=== PATIENT | female | born 1965 ===

== ENCOUNTER 2020-10-14 12:45 | Outpatient (REF) | payer OTHER, SELFPAY | END 2020-10-14 12:46 | disposition home or self-care (01) | LOC: HO.LAB 12:45 | PROVIDERS: Visit Provider Internal Medicine | DX: Z20.822 Contact with and (suspected) exposure to COVID-19 (principal) | CPT/HCPCS: 36415; C9803; U0003 ==

== ENCOUNTER → 2020-11-06 09:46 | Outpatient (BNVA) | payer OTHER, SELFPAY | PROVIDERS: PCP Internal Medicine; Visit Provider Internal Medicine Endocrinology, Diabetes & Metabolism | DX: E11.29 Type 2 diabetes mellitus with other diabetic kidney complication (principal); E11.21 Type 2 diabetes mellitus with diabetic nephropathy; E11.3293 Type 2 diabetes mellitus with mild nonproliferative diabetic retinopathy without macular edema, bilateral; E11.42 Type 2 diabetes mellitus with diabetic polyneuropathy; R80.9 Proteinuria, unspecified; I10 Essential (primary) hypertension; E78.5 Hyperlipidemia, unspecified; E66.9 Obesity, unspecified; E55.9 Vitamin D deficiency, unspecified | CPT/HCPCS: 82947; 99212 ==

== ENCOUNTER 2021-06-30 11:15 | Outpatient (REF) | payer OTHER, SELFPAY ==
[2021-06-30 12:17] LABS: Alanine Aminotransferase 17 U/L (0-31); Albumin Level 3.9 g/dL (3.5-5.0); Alkaline Phosphatase 78 U/L (39-117); Anion Gap 11 (12-20); Aspartate Amino Transferase 18 U/L (5-31); Bilirubin Total 0.3 mg/dL (0.0-1.0); Blood Urea Nitrogen 18 mg/dL (9-16); Calcium 9.6 mg/dL (8.4-10.2); Carbon Dioxide 28 mmol/L (22-29); Chloride 105 mmol/L (96-108); Cholesterol 107 mg/dL; Estimated Glomerular Filt Rate > 60; Glucose Fasting 111 mg/dL (60-99); HDL Cholesterol 47 mg/dL; LDL Cholesterol Calculated 49 mg/dl; Potassium 4.3 mmol/L (3.3-5.1); Sodium 140 mmol/L (135-145); Triglycerides 57 mg/dL
[2021-06-30 12:40] LABS: Vitamin D 25-OH Total 43.8 ng/mL (>30)
[2021-06-30 12:47] LABS: Vitamin B12 641 pg/mL (200-900)
[2021-06-30 15:00] LABS: Creatinine Urine 68.92 mg/dL; Microalbum/Creatinine Ratio Ur 81.2 ug/mg cr
== END 2021-06-30 11:16 | disposition home or self-care (01) ==
LOC: HO.LAB 11:15
PROVIDERS: PCP Internal Medicine; Visit Provider Nurse Practitioner Gerontology
DX: R80.9 Proteinuria, unspecified (principal); E11.29 Type 2 diabetes mellitus with other diabetic kidney complication; E55.9 Vitamin D deficiency, unspecified
CPT/HCPCS: 36415; 80053; 80061; 82043; 82306; 82607

== ENCOUNTER 2021-09-16 09:51 | Outpatient (REF) | payer OTHER, SELFPAY ==
[2021-09-16 10:59] LABS: Alanine Aminotransferase 17 U/L (0-31); Alkaline Phosphatase 65 U/L (39-117); Anion Gap 10 (12-20); Aspartate Amino Transferase 15 U/L (5-31); Bilirubin Total 0.7 mg/dL (0.0-1.0); Blood Urea Nitrogen 17 mg/dL (9-16); Carbon Dioxide 30 mmol/L (22-29); Chloride 105 mmol/L (96-108); Cholesterol 93 mg/dL; Estimated Glomerular Filt Rate > 60; Glucose Fasting 106 mg/dL (60-99); HDL Cholesterol 41 mg/dL; LDL Cholesterol Calculated 41 mg/dl; Potassium 4.2 mmol/L (3.3-5.1); Sodium 141 mmol/L (135-145); Total Protein 7.1 g/dL (6.5-8.0); Triglycerides 56 mg/dL
[2021-09-16 11:22] LABS: Free T4 (Free Thyroxine) 1.08 ng/dL (0.71-1.85); Thyroid Stimulating Hormone 1.14 uIU/mL (0.32-4.0); Vitamin B12 805 pg/mL (200-900)
[2021-09-16 12:17] LABS: Creatinine Urine 166.26 mg/dL; Microalbum/Creatinine Ratio Ur 64.9 ug/mg cr
== END 2021-09-16 09:52 | disposition home or self-care (01) ==
LOC: HO.LAB 09:51
PROVIDERS: Internal Medicine Endocrinology, Diabetes & Metabolism; PCP Internal Medicine; Visit Provider Nurse Practitioner Gerontology
DX: E11.29 Type 2 diabetes mellitus with other diabetic kidney complication (principal); R80.9 Proteinuria, unspecified
CPT/HCPCS: 36415; 80053; 80061; 82043; 82607; 84439; 84443

== ENCOUNTER → 2021-09-25 08:19 | Outpatient (BNVA) | payer OTHER, SELFPAY | PROVIDERS: PCP Internal Medicine; Visit Provider Nurse Practitioner Gerontology ==

== ENCOUNTER → 2022-03-19 08:48 | Outpatient (BNVA) | payer OTHER, SELFPAY | PROVIDERS: PCP Internal Medicine; Visit Provider Nurse Practitioner Gerontology | DX: E11.21 Type 2 diabetes mellitus with diabetic nephropathy (principal); E11.3293 Type 2 diabetes mellitus with mild nonproliferative diabetic retinopathy without macular edema, bilateral; I10 Essential (primary) hypertension; E78.5 Hyperlipidemia, unspecified; E66.9 Obesity, unspecified; Z68.31 Body mass index [BMI] 31.0-31.9, adult; E55.9 Vitamin D deficiency, unspecified; Z79.84 Long term (current) use of oral hypoglycemic drugs; Z79.899 Other long term (current) drug therapy | CPT/HCPCS: 82947; 83036; 99212 ==

== ENCOUNTER → 2023-03-16 10:49 | Outpatient (BNVA) | payer OTHER, SELFPAY | PROVIDERS: PCP Internal Medicine; Visit Provider Internal Medicine Rheumatology | DX: M79.7 Fibromyalgia (principal) | CPT/HCPCS: 99212 ==

== ENCOUNTER 2024-09-29 10:35 | Outpatient (AMB) | payer OTHER, SELFPAY ==
[2024-09-29 10:42] VITALS: BP 124/74; PULSE 80; O2SAT 100; BMI 32.3
--- NOTE | 2024-09-29 10:42 | A.OFFVIS_ITS ---
Vital Signs 09/29/24 10:42 Height 5 ft 5 in Weight 194 lb BMI 32.3 BP 124/74 Blood Pressure Location Lt brachial Position Sitting Pulse 80 Pulse Source Pulse Oximeter Pulse Oximetry (%) 100 Oxygen Delivery Method Room Air Intake Visit Reasons: FM Intake Note: Patient presents today for follow up on fibromyalgia. on 03/16/23, she saw Dr. Javier. Computer Patternmaker Required: Yes Computer Patternmaker Name: Michael [id number] Allergies latex Adverse Reaction (Unknown, Verified 09/29/24 10:47) Unknown HPI Comments Details: Patient is a 59-year-old female with hyperlipidemia, diabetes complicated by polyneuropathy and hypertension who presents today for follow up of fibromyalgia Interval History: Patient last seen 03/16/[address] Rick Javier. At that time patient continues to complain of widespread pains involving neck, shoulders, forearms, lower back, hips, and knees. At that time she was getting occasional steroid injections from Orthopedics. There was no evidence of inflammatory arthritis and her pain and tender points were consistent with fibromyalgia as well as likely some degenerative arthritis of the lumbar spine. She was continued with gabapentin and sent back to her PCP Today patient again reports widespread pain Most significant in her back, wrists and shoulders Takes gabapentin with some help Rheumatologic History: Fibromyalgia without any evidence of inflammatory arthritis Current Rheumatology Medication(s): Gabapentin 600 mg b.i.d. [facility] Medical History (Updated 09/29/24 @ 11:21 by Trupti Lopez MD) Carpal tunnel syndrome, right Diabetic polyneuropathy associated with type 2 diabetes mellitus Vitamin D deficiency Obesity (BMI 30-39.9) Dyslipidemia Hypertension Non-proliferative diabetic retinopathy, mild, both eyes Diabetic nephropathy associated with type 2 diabetes mellitus Diabetes type 2, controlled Surgical History H/O breast biopsy Hx of tonsillectomy Family History (Updated 03/16/23 @ 11:05 by MICHEAL Acuna) Mother Heart disease Hypertension Father No problems noted. Other Family history of arthritis Family history of diabetes mellitus Social History (Updated 03/16/23 @ 11:00 by MICHEAL Acuna) Household Members: Spouse Alcohol intake: never Patient Tobacco Use Status: Never used Tobacco Review of Systems Const Details: Review of Systems Constitutional: Denies fever, chills, weight loss ENT: Denies vision changes, eye pain or eye redness, dental caries, dry mouth GI: Denies nausea, vomiting, diarrhea, abdominal pain, change in BM Pulm: Denies SOB, NIXON, hemoptysis, wheezing Cards: Denies chest pain, palpitations Skin: Denies Raynaud's, rash, nail changes, photosensitivity, KNITTING 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 Well appearing and in no apparent painful distress HEENT Conjunctiva and sclera clear. ?Pupils equal round and reactive to light. ?No lymphadenopathy. ? CHEST/RESPIRATORY SYSTEM Normal respiratory effort and able to speak in complete sentences. ?Clear to auscultation bilaterally. ?No crackles, rales, rhonchi, wheezes heard. CARDIAC SYSTEM Regular rate and rhythm. ?S1 and S2 heard no murmurs. 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 No deformities noted. ?No synovitis noted to the MCPs, PIPs or DIPs. ?No tenderness to palpation of these joints. Wrists: ?Full range of motion at the wrists without pain. ?No tenderness to palpation or synovitis noted to the wrists. Elbows: Full range of motion without pain. No tenderness, weakness, swelling, increased warmth or erythema. Shoulders: Full range of motion with some pain. No tenderness, weakness, swelli ng, increased warmth or erythema. Hip bursa: Tenderness to palpation, bilaterally Knees: ?Full range of motion. ?No tenderness, swelling, increased warmth or erythema.?Bilat crepitations noted Tender points:?Tenderness to palpation of the bilateral trapezius, supraspinatus, greater trochanters, anterior costochondral junctions, bilateral gluteal areas, bilateral suboccipital muscle insertions SKIN Skin intact without rashes. Results Reviewed Results Reviewed: No recent labs or imaging to review Assessment & Plan Assessment & Plan (1) Fibromyalgia: Code(s): M79.7 - Fibromyalgia Category: Medical Plan: #Fibromyalgia Continues to have widespread pain. Discussed with patient that fibromyalgia is an incurable disease Patient has only tried gabapentin in the past we will try cyclobenzaprine (Flexeril) to see if this helps with her muscle spasms Also told her that she would need to exercise in the morning when she wakes up and in the evening just before she goes to bed to help reduce the muscle tension Plan - Continue gabapentin 600 mg b.i.d. (refilled) - Start cyclobenzaprine 5 mg at night - Stretches on you tube shown to patient and patient to do this in the morning and in the evening - RTC 4 months to eval effectiveness of flexeril (2) Carpal tunnel syndrome, right: Code(s): G56.01 - Carpal tunnel syndrome, right upper limb Category: Medical Plan: #Carpal Tunnel on the Right Patient with carpal tunnel affecting the right wrist and hand. Prescribed splint In the future if no improvement can do steroid injections Plan I spent 30 minutes reviewing the record and labs, seeing the patient, discussing the treatment plan and documenting in the medical record ? Medications: New [carpal tunnel brace] As directed 1 ea 0RF G56.01 - Carpal tunnel syndrome, right upper limb, M79.7 - Fibromyalgia cyclobenzaprine 5 mg PO BEDTIME 90 tabs 1RF G56.01 - Carpal tunnel syndrome, right upper limb, M79.7 - Fibromyalgia [carpal tunnel brace] As directed 1 ea 0RF G56.01 - Carpal tunnel syndrome, right upper limb, M79.7 - Fibromyalgia Changed From gabapentin 600 mg PO BID E11.42 - Type 2 diabetes mellitus with diabetic polyneuropathy, M79.7 - Fibromyalgia To gabapentin 600 mg PO BID 90 days 180 tabs 1RF E11.42 - Type 2 diabetes mellitus with diabetic polyneuropathy, M79.7 - Fibromyalgia Coding Level of Care Code Est Pt Level 4 (14848) Diagnoses Fibromyalgia M79.7 Carpal tunnel syndrome, right G56.01
== END 2024-09-29 11:31 | disposition home or self-care (01) ==
PROVIDERS: PCP Internal Medicine; Visit Provider Student in an Organized Health Care Education/Training Program
DX: M79.7 Fibromyalgia (principal); G56.01 Carpal tunnel syndrome, right upper limb
CPT/HCPCS: 99214

== ENCOUNTER → 2024-09-29 10:35 | Outpatient (BNVA) | payer OTHER, SELFPAY | PROVIDERS: PCP Internal Medicine; Visit Provider Student in an Organized Health Care Education/Training Program | DX: M79.7 Fibromyalgia (principal); G56.01 Carpal tunnel syndrome, right upper limb | CPT/HCPCS: 99212 ==

== ENCOUNTER 2025-02-21 09:48 | Outpatient (AMB) | payer OTHER, SELFPAY ==
--- NOTE | 2025-02-21 09:52 | A.OFFVIS_ITS ---
Vital Signs 02/21/25 09:56 Height 5 ft 5 in Weight 195 lb 8.8 oz BMI 32.5 BP 120/72 Blood Pressure Location Lt brachial Position Sitting Pulse 82 Pulse Source Pulse Oximeter Pulse Oximetry (%) 97 Oxygen Delivery Method Room Air Intake Visit Reasons: FM Intake Note: Patient presents for FM follow up. Sausage Machine Operator Required: Yes Sausage Machine Operator Language: Braid Pattern Setter Services: Sausage Machine Operator Present Sausage Machine Operator Name: Norma [id number] Information Interpreted: non-clinical & clinical Allergies latex Adverse Reaction (Unknown, Verified 02/21/25 09:55) Unknown Medication List - Last Reconciled 02/21/25 by Trupti Lopez MD albuterol sulfate 90 mcg/actuation 1 puff inhalation Q6H PRN aspirin 1 tab PO ONCE atorvastatin 10 mg PO DAILY blood sugar diagnostic (FreeStyle Lite Strips) As directed to test blood glucose twice per day. blood sugar diagnostic (FreeStyle Precision Tristan Strips) 3 x/day [carpal tunnel brace As directed] cholecalciferol (vitamin D3) 50 mcg PO DAILY 90 days cyclobenzaprine 5 mg PO BEDTIME dulaglutide 1.5 mg (0.5 mL) subcut QWEEK 84 days flash glucose sensor (FreeStyle Jason 14 Day Sensor kit) every 14 days gabapentin 600 mg PO BID 90 days lisinopril 40 mg PO DAILY meclizine 12.500f25 mg PO TID PRN metformin ER 1,000 mg (2 x 500 mg) PO BID omeprazole 20 mg PO DAILY HPI Comments Details: Patient is a 59-year-old female with hyperlipidemia, diabetes complicated by polyneuropathy and hypertension who presents today for follow up of fibromyalgia Interval History: Patient last seen 09/29/2024. That time she was following up for her fibromyalgia as well as carpal tunnel syndrome. Flexeril 5 mg was added to her regimen of gabapentin 600 mg twice a day and she was recommended bilateral wrist splints for her carpal tunnel syndrome. Today patient reports improvement upon the Flexeril as well as improvement with using wrist splints Walks for exercise Does note some pain in her foot after walking for a prolonged period of time Rheumatologic History: Fibromyalgia without any evidence of inflammatory arthritis Current Rheumatology Medication(s): Gabapentin 600 mg b.i.d. Cyclobenzaprine 5mg at night [facility] Medical History (Updated 09/29/24 @ 11:21 by Trupti Lopez MD) Carpal tunnel syndrome, right Diabetic polyneuropathy associated with type 2 diabetes mellitus Vitamin D deficiency Obesity (BMI 30-39.9) Dyslipidemia Hypertension Non-proliferative diabetic retinopathy, mild, both eyes Diabetic nephropathy associated with type 2 diabetes mellitus Diabetes type 2, controlled Surgical History Hx of tonsillectomy H/O breast biopsy Family History Mother Heart disease Hypertension Father No problems noted. 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 Well appearing and in no apparent painful distress HEENT Conjunctiva and sclera clear. ?Pupils equal round and reactive to light. ?No lymphadenopathy. ? CHEST/RESPIRATORY SYSTEM Normal respiratory effort and able to speak in complete sentences. ?Clear to auscultation bilaterally. ?No crackles, rales, rhonchi, wheezes heard. CARDIAC SYSTEM Regular rate and rhythm. ?S1 and S2 heard no murmurs. 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 No deformities noted. ?No synovitis noted to the MCPs, PIPs or DIPs. ?No tenderness to palpation of these joints. Wrists: ?Full range of motion at the wrists without pain. ?No tenderness to palpation or synovitis noted to the wrists. Elbows: Full range of motion without pain. No tenderness, weakness, swelling, increased warmth or erythema. Shoulders: Full range of motion with some pain. No tenderness, weakness, swelling, increased warmth or erythema. Hip bursa: Tenderness to palpation, bilaterally Knees: ?Full range of motion. ?No tenderness, swelling, increased warmth or erythema.?Bilat crepitations noted Tender points:?Tenderness to palpation of the bilateral trapezius, supraspinatus, greater trochanters, anterior costochondral junctions, bilateral gluteal areas, bilateral suboccipital muscle insertions SKIN Skin intact without rashes. Results Reviewed Results Reviewed: No recent labs or imaging to review Assessment & Plan Assessment & Plan (1) Fibromyalgia: Code(s): M79.7 - Fibromyalgia Category: Medical Plan: #Fibromyalgia Patient is a 59 year old female with fibromyalgia. Notes improvement on the cyclobenzaprine. Continue gabapentin and flexeril Again encouraged stretching Plan - Continue gabapentin 600 mg b.i.d. - Cyclobenzaprine 5 mg at night - RTC 1 year (2) Carpal tunnel syndrome, right: Code(s): G56.01 - Carpal tunnel syndrome, right upper limb Category: Medical Plan: #Carpal Tunnel on the Right Patient with carpal tunnel affecting the right wrist and hand. Splinting is effective, patient to continue Plan I spent 20 minutes reviewing the record and labs, seeing the patient, discussing the treatment plan and documenting in the medical record ? Coding Level of Care Code Est Pt Level 3 (65481) Diagnoses Fibromyalgia M79.7 Carpal tunnel syndrome, right G56.01
[2025-02-21 09:56] VITALS: BP 120/72; PULSE 82; O2SAT 97; BMI 32.5
--- OUTSIDE RECORDS SUMMARY | 2025-02-21 10:33 | XMS_ITS | Clinical Summary ---
Author Organization [facility] [address] [place] [address] [place] [phone] Phone Care Team Providers Care Employee Welfare Manager Name Role Phone Russ Guerrero MD Primary Care Provider [phone] Allergies Active Allergy Reactions Criticality Noted Date Comments Adhesive Tape-Silicones 11/28/2024 burning Medications cholecalciferol (VITAMIN D-3) 50 mcg (2,000 unit) capsule Take 1 Capsule by mouth daily. 3 Active blood-glucose meter (BLOOD GLUCOSE MONITORING MISC) 1 Device by Does not apply route daily. 3 Active flash glucose sensor (FREESTYLE CELESTINE 2 SENSOR MISC) 1 Device by Does not apply route every 14 days. 3 Active FREESTYLE LANCETS MISC Test fasting blood sugar 2 times daily 4 Active blood sugar diagnostic (FreeStyle Lite Strips) test strip Test fasting blood sugar 2 times daily 4 Active diclofenac (VOLTAREN) 1 % topical gel Apply 4 g topically 4 times daily. 4 Active gabapentin (NEURONTIN) 600 mg tablet Take 1 Tablet by mouth 2 times daily. 4 Active meclizine (ANTIVERT) 25 mg tablet Take 1 Tablet by mouth 3 times daily as needed for Other. 4 Active PARoxetine (PAXIL) 10 mg tablet Take 1 Tablet by mouth every morning. 3 Active albuterol HFA (PROAIR HFA ; PROVENTIL HFA ; VENTOLIN HFA) 90 mcg/actuation inhaler Inhale 1 Puff into the lungs every 6 hours as needed for Cough or Wheezing. 3 Active polyethylene glycol (MIRALAX) 17 gram packet Take 17 g by mouth daily as needed for Constipation for up to 30 days. 2 Active dulaglutide (Trulicity) 1.5 mg/0.5 mL pen injector injection Inject 0.5 mL (1.5 mg total) under the skin every 7 (seven) days. Inject 1.5 mg into the skin once a week. 2 mL 5 5 Active metFORMIN XR (GLUCOPHAGE-XR) 500 mg 24 hr tablet Take 1 tablet (500 mg total) by mouth 2 (two) times a day. Do not crush, chew, or split. 180 tablet 1 5 Active atorvastatin (LIPITOR) 10 mg tablet Take 1 tablet (10 mg total) by mouth at bedtime. 90 tablet 1 5 Active lisinopril (PRINIVIL,ZESTR IL) 40 mg tablet Take 1 tablet (40 mg total) by mouth 1 (one) time each day. 90 tablet 1 5 Active omeprazole (PriLOSEC) [address] capsule Take 1 capsule (20 mg total) by mouth 2 (two) times a day. Do not crush or chew. 90 capsule 1 5 Active cyclobenzaprine (FLEXERIL) 5 mg tablet Take 1 tablet (5 mg total) by mouth at bedtime as needed for muscle spasms. 30 tablet 5 Active hydrocortisone 2.5 % cream Apply topically 2 (two) times a day if needed for irritation or rash. 30 g 2 5 10/12/19 26 Active aspirin 81 mg chewable tablet TAKE 1 TABLET BY MOUTH EVERY DAY 90 tablet 1 5 Active Active Problems Problem Noted Date Diagnosed Date Diabetes mellitus type 2 wit h neurological manifestations (CMS/HCC V24, CMS/HCC V28) 07/06/2024 HTN (hypertension) 07/06/2024 Hypercholesteremia 07/06/2024 Fibromyalgia 07/06/2024 Overview (07/06/2024): Follows with rheumatology Mass of upper outer quadrant of left breast 12/27 Overview (07/06/2024): Last Assessment & Plan: I recommended diagnostic imaging. She will schedule this. Will also refer to breast clinic regardless of findings given possible need for biopsy. Cervical polyp 01/21/2023 Overview (07/06/2024): Last Assessment & Plan: Removed without difficulty as noted. Sent to pathology. Insomnia 08/03/2022 Overview (07/06/2024): Last Assessment & Plan: Counseled as noted re: possible effects of off and on Paxil use. Also counseled re: proper sleep hygeine. Vasomotor symptoms due to menopause 04/09/2022 Overview (07/06/2024): Last Assessment & Plan: Will restart Paxil. 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 9) with comorbidity ([facility] V24, [facility] V28) 04/17/2019 Diabetic gastroparesis ([facility] V24, [facility] V28 ) 06/11/2018 Overview (07/06/2024): Mild s/p gastric emptying 05/2018 Tendonitis of ankle or foot 05/02/2018 Overview (07/06/2024): Posterior; follows with podiatry Proliferative retinopathy du e to DM ([facility] V24, CMS/[facility] V28) 01/28/2018 Overview (07/06/2024): Last eye exam 09/2017 Macular edema 09/16/2017 Overview (07/06/2024): OS Microalbuminuria 09/16/2017 Peripheral neuropathy 09/16/2017 NAFLD (nonalcoholic fatty liver disease) 017 Varicose veins of legs 09/16/2017 Overview (07/06/2024): S/p venous US no clot 08/2018 Depression 09/16/2017 Vitamin D deficiency 07/12/2017 LAURA on CPAP 06/01/2017 Overview (07/06/2024): NOT TREATED (Jul 2021) Follows with [facility] 08/2021 Home Sleep Study did not reveal sleep apnea or nocturnal hypoxia. Type 2 diabetes mellitus wit h eye manifestations ([facility] V24, [facility] V28) 01/21/2017 Lipoma of breast 09/01/2016 Overview (07/06/2024): Left breast 10:00 position DM (diabetes mellitus), type 2 with renal complications ([facility] V24, [facility] V28) 08/31/2016 Overview (07/06/2024): Follows with endocrinology at [facility]. Dr. Harley KAISER of cervix with negative high risk HPV 01/2016 Overview (07/06/2024): On PAP from 08/2016 Encounters Date Type Department Care Team Description 11/28/2024 12:18 PM EST - 11/28/2024 11:59 PM EST Hospital Encounter Radiology Department - [address] [phone] Encounter for screening mammogram for malignant neoplasm of breast Discharge Disposition: Home or Self Care 11/28/2024 9:45 AM EST Office Visit Obstetrics and Gynecology - [address] [phone] Beatriz Paredes CNM Encounter for gynecological examination without abnormal finding (Primary Dx); Encounter for screening mammogram for malignant neoplasm of breast; Breast lipoma from Last 3 Months Immunizations Name Administration Dates Next Due Influenza Quadravalent, MDCK , 0.5ml, preservative free (Flucelvax) 6mo and older 08/01/2021,06/13/2020 Influenza Quadravalent, MDCK , 0.5ml, with preservative (Flucelvax) 6mo and older 07/27/2017 Pneumococcal conjugate 13 va lent (Prevnar 13, PCV13) 2mo and older 11/26/2016 Tdap Tetanus diptheria acell ular pertussis (Boostrix; Adacel) 7yo and older 11/26/2016 Surgical History Surgery Date Site/Laterality Comments STEREOTACTIC CORE BIOPSY Right in [place] 40+ yrs ago neg Medical History Medical History Date Comments ASCUS of cervix with negativ e high risk HPV 08/31/2016 DX:ASCUS of cervix with nega tive high risk HPV; COMMENT: On PAP from 08/2016 Colonoscopy refused 07/27/2017 DX:Colonosco py refused; COMMENT: See office note 07/27/2017 Depression 09/16/2017 DX:Depression Diabetes mellitus type 2 wit h neurological manifestations ([facility] V24, [facility] V28) DX:Diabetes mellitus type 2 with neurological manifestations (HCC) DM (diabetes mellitus), type 2 with renal complications ([facility] V24, [facility] V28) 08/31/2016 DX:DM (diabetes mellitus), t ype 2 with renal complications (HCC); COMMENT: Follows with endocrinology at [facility]. Dr. Souza Fibromyalgia DX:Fibromyalgia; COMMENT: Follows with rheumatology HTN (hypertension) DX:HTN (hyper tension) Hypercholesteremia DX:Hyperchole steremia Lipoma of breast 09/01/2016 DX:Lipoma of br east; COMMENT: Left breast 10:00 position Macular edema 09/16/2017 DX:Macular edema ; COMMENT: OS Microalbuminuria 09/16/2017 DX:Microalbumin uria LAURA on CPAP 06/01/2017 DX:LAURA on CPAP; COMMENT: Follows with [facility] Peripheral neuropathy 09/16/2017 DX:Periphe ral neuropathy Type 2 diabetes mellitus wit h eye manifestations ([facility] V24, [facility] V28) 01/21/2017 DX:Type 2 diabetes mellitus with eye manifestations (HCC) Vitamin D deficiency 07/12/2017 DX:Vitamin D deficiency NAFLD (nonalcoholic fatty li megan disease) 09/16/2017 DX:NAFLD (nonalcoholic fatty liver disease) Proliferative retinopathy du e to DM ([facility] V24, [facility] V28) 01/28/2018 DX:Proliferative retinopath y due to DM ([facility]); COMMENT: Last eye exam 09/2017 Tendonitis of ankle or foot 05/02/2018 DX:T endonitis of ankle or foot; COMMENT: Posterior; follows with podiatry Diabetic gastroparesis ([facility] V24, [facility] V28) 06/11/2018 DX:Diabetic gastroparesis ([facility]); COMMENT: Mild s/p gastric emptying 05/2018 Varicose veins of legs 09/16/2017 DX:Varico se veins of legs; COMMENT: S/p venous US no clot 08/2018 Obesity (BMI 30-39.9) 04/17/2019 DX:Obesity (BMI 30-39.9) 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 DX:Uln ar neuropathy at elbow; COMMENT: On EMG 05/2020 Family History Medical History Relation Name Comments Breast cancer Aunt great aunt Hypertension Brother lung cancer (sm oker); drug abuse Other: no medical history Father Arthritis Grandparent Hypertension Maternal Grandfather 80's Prostate cancer Maternal Grandfather 80's Hypertension Maternal Grandmother diabete s Hypertension Mother ESRD Hypertension Sister x2 diabetes Breast cancer Neg Hx Colon cancer Neg Hx Ovarian cancer Neg Hx Pancreatic cancer Neg Hx Uterine cancer Neg Hx Relation Name Status Comments Aunt great aunt Brother Father Grandparent Maternal Grandfather 80's Maternal Grandmother Mother Sister x2 Alive Social History Tobacco Use Types Packs/Day Years Used Date Smoking Tobacco: Never Smokeless Tobacco: Never Tobacco Cessation:Counseling Given: Not Answered Alcohol Use Standard Drinks/Week Comments No 0 (1 standard drink = 0.6 oz pur e alcohol) Comments No Sex and Gender Information Value Date Recorded Sex Assigned at Not on file Legal Sex Female 5:36 AM EST Gender Identity Not on file Sexual Orientation Not on file Obstetrics History Para Term AB IAB SAB Ectopic Multiple Livin g Live Births 3 2 2 0 1 0 1 0 0 2 2 Date Outcome GA Total Labor Labor/2nd/3rd Weight Sex Type Anes PTL Trinh A1 A5 Name Clin Term Vag-S pont Living Term Vag-S pont Living SAB Last Filed Vital Signs Vital Sign Reading Time Taken Comments Blood Pressure 134/69 11/28/2024 9:29 AM EST Pulse 74 11/28/2024 9:29 AM EST Temperature 36.9 ??C (98.4 ??F) 10/12/2024 11:[address] Respiratory Rate 14 11/28/2024 9:29 AM EST Oxygen Saturation - - Inhaled Oxygen Concentration - - Weight 89.4 kg (197 lb) 11/28/2024 9:29 AM EST Height 165.1 cm (5' 5 ) 11/28/2024 9:29 AM EST Body Mass Index 32.78 11/28/2024 9:29 AM EST Plan of Treatment Upcoming Encounters Date Type Department Care Team (Late st Contact Info) Description 04/18/2025 11:00 AM EDT Office Visit Adult Medicine [facility] [address] [place] [address] Russ Guerrero MD [address] [place] [phone] Health Maintenance Due Date Last Done Comments COVID-19 Vaccine (#1) 1969 Diabetes: Annual Foot Exam 1974 Zoster Vaccines (1 of 2) 1983 Pneumococcal Vaccine: 50+ Years (2 of 2 - PPSV23) 01/21/2017 11/26/2016 Pneumococcal Vaccine: Pediatrics (0 to 5 Years) and At-Risk Patients (6 to 64 Years) (2 of 2 - PPSV23) 01/21/2017 11/26/2016 Colorectal Cancer Screening: Stool Based Tests (FOBT/FIT) 09/05/2022 Depression Screening 09/05/2022 HIV Screening 09/05/2022 Social Influencers of Health Screening 09/05/2022 RSV Immunization Adult Patients (1 - Risk 60-74 years 1-dose series) 2024 Diabetes: Blood Sugar Contro l Test (HGBA1C) 04/11/2025 10/12/2024, 04/06/2024, 04/06/2024 Influenza Vaccine (Season Ended) 2025 08/01/2021, 06/13/2020, 07/27/2017 Diabetes: Annual Retina Eye Exam 09/14/2025 09/14/2024 Diabetes: Annual Urine Albumin-Creatinine Ratio (uACR) 10/12/2025 10/12/2024, 04/06/2024 Diabetes: Annual GFR (Glomerular Filtration Rate) 10/12/2025 10/12/2024, 04/06/2024, 04/06/2024 Hypertension/CHF/CAD Annual BMP Blood Test 10/12/2025 10/12/2024, 04/06/2024, 04/06/2024 DTaP,Tdap,and Td Vaccines (2 - Td or Tdap) 11/26/2026 11/26/2016 Breast Cancer Screening 11/28/2026 11/29/19 25, 02/10/2023 Cervical Cancer Screening: HPV 01/22/2028 01/21/2023 Cholesterol Screening (Lipid Panel) 10/12/2029 10/12/2024, 04/06/2024, 04/06/2024 Hepatitis C Screening Completed 08/28/2016 HIB Vaccines Aged Out No longer eligi ble based on patient's age to complete this topic HPV Vaccines Aged Out No longer eligi ble based on patient's age to complete this topic Hepatitis A Vaccines Aged Out No long er eligible based on patient's age to complete this topic Hepatitis B Vaccines Aged Out No long er eligible based on patient's age to complete this topic IPV Vaccines Aged Out No longer eligi ble based on patient's age to complete this topic MMR Vaccines Aged Out No longer eligi ble based on patient's age to complete this topic Meningococcal ACWY Vaccine Aged Out N o longer eligible based on patient's age to complete this topic Meningococcal B Vaccine Aged Out No l onger eligible based on patient's age to complete this topic RSV Immunization Patients Under 20 months Aged Out No longer eligible b ased on patient's age to complete this topic Varicella Vaccines Aged Out No longer eligible based on patient's age to complete this topic Procedures Procedure Name Priority Date/Time Associated Diagnosis Comments MG MAMMO DIGITAL SCREENING W SARWAT BILAT Routine 11/28/2024 12:58 PM EST Encounter for screening mammogram for malignant neoplasm of breast MICROALBUMIN CREATININE URINE RATIO Routine 10/12/2024 12:40 PM EST Type 2 diabetes mellitus with diabetic microalbuminuria, without long-term current use of insulin ([facility] V24, [facility] V28) Microalbuminuria COMPREHENSIVE METABOLIC PANEL Routine 10/12/2024 12:40 PM EST Leg cramp Encounter for long-term (current) use of medications HEMOGLOBIN A1C Routine 10/12/2024 12:40 PM EST Primary hypertension LIPID PANEL WITH REFLEX TO DIRECT LDL Routine 10/12/2024 12:40 PM EST Hypercholesteremia EXTERNAL DIABETIC RETINA EYE EXAM 09/14/2024 HM HPV Routine 01/21/2023 HEPATITIS C SCREENING Routine 08/28/2016 from Last 3 Months or Most Recently Relevant to Health Maintenance Results * MG Mammo Digital Screening w Sarwat bilat (11/28/2024 12:58 PM EST) Anatomical Region Laterality Modality Breast Bilateral Mammography 11/29/2024 9:42 AM EST Impressions 11/29/2024 9:44 AM EST No mammographic evidence for malignancy. BI-RADS CATEGORY: 1 - NEGATIVE RECOMMENDATION: Screening bilateral mammogram is recommended in 1 year. Mammo Location: [facility], [address] [place] [address], [id number], . -------- FINAL REPORT -------- Dictated By: Erika Zavaleta Dictated Date: 11/29/2024 09:42 ET Assigned Physician: Erika Zavaleta Reviewed and Electronically Signed By: Erika Zavaleta Signed Date: 11/29/2024 09:44 ET Workstation ID: [id number] Transcribed By: Self Edit Transcribed Date: 11/29/2024 09:42 ET Narrative 11/29/2024 9:44 AM EST Bilateral screening exam. CLINICAL: 59 years old, Female, routine annual exam. COMPARISON: Prior mammograms, latest from 02/10/2023. ?? TECHNIQUE: Bilateral MLO and CC views were obtained digitally with 2-D C views and 3-D mammogram (digital breast tomosynthesis). Computer-aided detection was utilized in evaluation of this exam (CAD). FINDINGS: There is no evidence of suspicious mass or architectural distortion. ??No worrisome calcifications are evident. ??There has been no significant change from prior exam(s). ?? BREAST DENSITY: B - There are scattered areas of fibroglandular density. Procedure Note Erika Zavaleta MD - 11/29/2024 Bilateral screening exam. CLINICAL: 59 years old, Female, routine annual exam. COMPARISON: Prior mammograms, latest from 02/10/2023. TECHNIQUE: Bilateral MLO and CC views were obtained digitally with 2-D Cviews and 3-D mammogram (digital breast tomosynthesis). Computer-aideddetection was utilized in evaluation of this exam (CAD). FINDINGS: There is no evidence of suspicious mass or architectural distortion. Noworrisome calcifications are evident. There has been no significantchange from prior exam(s). BREAST DENSITY: B - There are scattered areas of fibroglandular density. IMPRESSION: No mammographic evidence for malignancy. BI-RADS CATEGORY: 1 - NEGATIVE RECOMMENDATION: Screening bilateral mammogram is recommended in 1 year. Mammo Location: [facility], [address] [place] [address], [id number], . -------- FINAL REPORT -------- Dictated By: Erika Zavaleta Dictated Date: 11/29/2024 09:42 ET Assigned Physician: Erika Zavaleta Reviewed and Electronically Signed By: Erika Zavaleta Signed Date: 11/29/2024 09:44 ET Workstation ID: [id number] Transcribed By: Self Edit Transcribed Date: 11/29/2024 09:42 ET Beatriz Paredes [facility] IM BI PROCEDURES Final Result * Lipid panel with reflex to direct LDL (10/12/2024 12:40 PM EST) Cholesterol 104 0 - 200 mg/dL LAB CHEMISTRY METHOD 10/12/2024 8:30 PM EST [facility] Triglycerides 86 0 - 150 mg/dL LAB CHEMISTRY METHOD 10/12/2024 8:30 PM EST [facility] HDL 58 >=40 mg/dL LAB CHEMISTRY METHOD 10/12/2024 8:30 PM EST [facility] LDL Calculated 29 0 - 100 mg/dL LAB CHEMISTRY METHOD 10/12/2024 8:30 PM EST [facility] VLDL Cholesterol Anton 17.2 mg/dL LAB CHEMISTRY METHOD 10/12/2024 8:30 PM EST [facility] Non HDL Chol. (LDL+VLDL) 46 <145 mg/dL LAB CHEMISTRY METHOD 10/12/2024 8:30 PM EST [facility] Chol/HDL Ratio 1.8 0.0 - 4.4 LAB CHEMISTRY METHOD 10/12/2024 8:30 PM EST [facility] Blood Venous blood specimen / Unknown Venipuncture / Unknown 10/12/2024 12:40 PM EST 10/12/2024 12:40 PM EST us Russ Guerrero MD LAB BLOOD ORDERABLES Final Resu lt Performing Organization Address [facility]/ZIP Co de Phone Number [facility] [address] [place] [address], [place] [phone] * (ABNORMAL) Microalbumin creatinine urine ratio (10/12/2024 12:40 PM EST) Creatinine, Urine 102.0 mg/dL LAB CHEMISTRY METHOD 10/12/2024 7:40 PM [facility] Microalb, Ur 92.6(H) 0.0 - 29.0 mg/L LAB CHEMISTRY METHOD 10/12/2024 7:40 PM EST [facility] Microalb/Crea t Ratio 91(H) <30 mg/g creat LAB CHEMISTRY METHOD 10/12/2024 7:40 PM EST [facility] Urine Urine specimen obtained by clean catch procedure / Unknown Non-blood Collection / Unknown 10/12/2024 12:40 PM EST 10/12/2024 12:40 PM EST us Russ Guerrero MD LAB URINE ORDERABLES Final Resu lt Performing Organization Address [facility]/ZIP Co de Phone Number [facility] [address] [place] [address], [place] [phone] * Hemoglobin A1c (10/12/2024 12:40 PM EST) Pathologist [facility] Hemoglobin A1C 5.9 <6.5 % LAB CHEMISTRY METHOD 10/12/2024 8:51 PM [facility] Mean Bld Glu Estim. 123 mg/dL LAB CHEMISTRY METHOD 10/12/2024 8:51 PM EST [facility] Blood Venous blood specimen / Unknown Venipuncture / Unknown 10/12/2024 12:40 PM EST 10/12/2024 12:40 PM EST us Russ Guerrero MD LAB BLOOD ORDERABLES Final Resu lt [facility] [address] [place] [address], * Comprehensive metabolic panel (10/12/2024 12:40 PM EST) [facility] Sodium 138 133 - 145 mmol/L LAB CHEMISTRY METHOD 10/12/2024 8:30 PM [facility] Potassium 4.0 3.5 - 5.5 mmol/L LAB CHEMISTRY METHOD 10/12/2024 8:30 PM [facility] Chloride 103 96 - 110 mmol/L LAB CHEMISTRY METHOD 10/12/2024 8:30 PM [facility] CO2 31 21 - 32 mmol/L LAB CHEMISTRY METHOD 10/12/2024 8:30 PM [facility] Anion Gap 4 3 - 11 LAB CHEMISTRY METHOD 10/12/2024 8:30 PM [facility] Glucose 99 70 - 100 mg/dL LAB CHEMISTRY METHOD 10/12/2024 8:30 PM [facility] BUN 16 5 - 25 mg/dL LAB CHEMISTRY METHOD 10/12/2024 8:30 PM [facility] Creatinine 0.72 0.50 - 1.10 mg/dL LAB CHEMISTRY METHOD 10/12/2024 8:30 PM [facility] eGFR 96 >=60 mL/min/1. 73m2 LAB CHEMISTRY METHOD 10/12/2024 8:30 PM [facility] Comment:Calculation based on the??Chronic Kidney Disease Epidemiology Collaboration (CKD-EPI) equation refit??without adjustment for race. BUN/Creatinine Ratio 22.2 LAB CHEMISTRY METHOD 10/12/2024 8:30 PM [facility] Calcium 9.9 8.5 - 10.5 mg/dL LAB CHEMISTRY METHOD 10/12/2024 8:30 PM [facility] AST (SGOT) 14 10 - 42 unit/L LAB CHEMISTRY METHOD 10/12/2024 8:30 PM [facility] ALT (SGPT) 15 10 - 60 unit/L LAB CHEMISTRY METHOD 10/12/2024 8:30 PM [facility] Alkaline Phosphatase 76 42 - 121 unit/L LAB CHEMISTRY METHOD 10/12/2024 8:30 PM [facility] Total Protein 7.8 6.0 - 8.0 g/dL LAB CHEMISTRY METHOD 10/12/2024 8:30 PM [facility] Albumin 4.1 3.2 - 5.0 g/dL LAB CHEMISTRY METHOD 10/12/2024 8:30 PM [facility] Total Bilirubin 0.5 0.0 - 1.4 mg/dL LAB CHEMISTRY METHOD 10/12/2024 8:30 PM [facility] Blood Venous blood specimen / Unknown Venipuncture / Unknown 10/12/2024 12:40 PM EST 10/12/2024 12:40 PM EST us Russ Guerrero MD LAB BLOOD ORDERABLES Final Resu lt [facility] [address] [place] [address], * External Diabetic Retina Eye Exam Report (09/14/2024) Anatomical Region Laterality Modality Ultrasound us Provider Onbase MD [facility] US PROCEDURES Final Resul t * Cervical Cancer Screening: HPV (01/21/2023) Cervical Cancer Screening: HPV negative, abstracted us Historical Provider MD HEALTH MAINTENANCE Final Result * Hepatitis C Screening (08/28/2016) Hepatitis C Screening abstracted us Historical Provider MD HEALTH MAINTENANCE Final Result from Last 3 Months or Most Recently Relevant to Health Maintenance Insurance [facility] [employer] Care Teams Employee Welfare Manager Relationship Specialty Start Date End Date Russ Guerrero MD [address] [place] [id number] PCP - General Internal Medicine 07/23/21
== END 2025-02-21 10:21 | disposition home or self-care (01) ==
LOC: HO.RHE 09:48
PROVIDERS: PCP Internal Medicine; Visit Provider Student in an Organized Health Care Education/Training Program
DX: M79.7 Fibromyalgia (principal); G56.01 Carpal tunnel syndrome, right upper limb
CPT/HCPCS: 99213

== ENCOUNTER → 2025-02-21 09:48 | Outpatient (BNVA) | payer OTHER, SELFPAY | PROVIDERS: PCP Internal Medicine; Visit Provider Student in an Organized Health Care Education/Training Program | DX: M79.7 Fibromyalgia (principal); G56.01 Carpal tunnel syndrome, right upper limb; E11.42 Type 2 diabetes mellitus with diabetic polyneuropathy; E78.5 Hyperlipidemia, unspecified; I10 Essential (primary) hypertension | CPT/HCPCS: 99212 ==